=== PATIENT | male | born 1950 | race Two or more races ===

== ENCOUNTER 2018-02-22 08:06 | Outpatient (CLI) | payer OTHER ==
[~2018-02-22 08:06] MED LIST: DIAZEPAM10 MG PO
== END 2018-02-22 12:39 | disposition home or self-care (01) ==
LOC: TOM 08:06
DX: R97.20 Elevated prostate specific antigen [PSA] (principal); N28.1 Cyst of kidney, acquired; R31.9 Hematuria, unspecified

== ENCOUNTER → 2018-08-16 17:14 | Outpatient (CLI) | payer OTHER | END | disposition home or self-care (01) | LOC: LAB 17:14 | DX: R97.20 Elevated prostate specific antigen [PSA] (principal) ==

== ENCOUNTER 2018-10-13 09:50 | Day surgery (SDC) | payer OTHER ==
[~2018-10-13 09:50] MED LIST changes: +ASPIR 8181 MG; +HYZAAR 50-12.51 EACH
== END 2018-10-13 22:10 | disposition home or self-care (01) ==
LOC: CIR.AMB 09:50 → ADM 12:15 → CIR.AMB 22:10
DX: C61 Malignant neoplasm of prostate (principal); N13.39 Other hydronephrosis

== ENCOUNTER → 2018-11-24 | Outpatient (CLI) | payer OTHER | END | disposition home or self-care (01) | LOC: NUCLEAR 09:26 | DX: I25.10 Atherosclerotic heart disease of native coronary artery without angina pectoris (principal); R97.20 Elevated prostate specific antigen [PSA]; N28.1 Cyst of kidney, acquired | CPT/HCPCS: J0153; A9500; 93017; 78452 ==

== ENCOUNTER 2020-03-29 13:06 | Emergency (ER) | payer OTHER ==
[~2020-03-29] VITALS: Ht 182.9 cm; Wt 141.5 kg
[2020-03-29] MEDS ORDERED: IRBESARTAN-HCT1 EACH PO (13:43)
[2020-03-29] MEDS ORDERED: METFORMIN HCL500 M4 PO (13:43)
[2020-03-29] MEDS ORDERED: LOSARTAN-HCTZ1 EAC2 PO (13:43)
[2020-03-29] MEDS ORDERED: ERLEADA60 MG PO (13:44)
== END 2020-03-29 20:23 | disposition home or self-care (01) ==
LOC: ER 13:06
DX: J40 Bronchitis, not specified as acute or chronic (principal); Z20.822 Contact with and (suspected) exposure to COVID-19

== ENCOUNTER 2020-11-19 08:00 | Outpatient (CLI) | payer OTHER ==
[~2020-11-19 08:00] MED LIST changes: +ERLEADA60 MG PO; +IRBESARTAN-HCT1 EACH PO; +LOSARTAN-HCTZ1 EAC2 PO; +METFORMIN HCL500 M4 PO
== END 2020-11-19 08:30 | disposition home or self-care (01) ==
LOC: PPH VACUNA 08:00
DX: Z23 Encounter for immunization (principal)

== ENCOUNTER 2021-06-18 12:02 | Outpatient (CLI) | payer OTHER | END 2021-06-18 12:05 | disposition home or self-care (01) | LOC: SONOGRAMA 12:02 | PROVIDERS: ATTEND Pathology Anatomic Pathology & Clinical Pathology | DX: E04.1 Nontoxic single thyroid nodule (principal) ==

== ENCOUNTER → 2021-06-18 | Outpatient (CLI) | payer OTHER | END | disposition home or self-care (01) | LOC: NUCLEAR 13:30 | PROVIDERS: ATTEND Radiology Radiation Oncology | DX: M81.0 Age-related osteoporosis without current pathological fracture (principal) ==

== ENCOUNTER 2024-02-26 07:59 | Emergency (ER) | payer OTHER ==
[~2024-02-26] VITALS: Ht 182.9 cm; Wt 138.8 kg
[2024-02-26 12:48] LABS: HEMOGLOBIN 15.2 g/dL (13-16.00); MEAN CELL VOLUME 85.9 fL (80.0-100.00); MEAN CORPUSCULAR HEMOGLOBIN 28.5 pg (27.00-32.0); MEAN CORPUSCULAR HGB CONC 33.1 g/dl (32.0-36.0); PLATELET COUNT 223 K/uL (150-450); RED BLOOD COUNT 5.35 M/uL (4.00-6.00); RED CELL DISTRIBUTION WIDTH 15.2 % (11.5-14.5)
== END 2024-02-26 16:11 | disposition home or self-care (01) ==
LOC: ER 08:01
DX: J40 Bronchitis, not specified as acute or chronic (principal); B34.9 Viral infection, unspecified; I10 Essential (primary) hypertension; Z20.822 Contact with and (suspected) exposure to COVID-19

== ENCOUNTER 2025-01-22 08:26 | Outpatient (CLI) | payer OTHER | END 2025-01-22 08:32 | disposition home or self-care (01) | LOC: TOM 08:26 | DX: R10.22 Pelvic and perineal pain left side (principal); R10.A2 Flank pain, left side; N13.30 Unspecified hydronephrosis ==